=== PATIENT | male | born 1945 | race Caucasian/White ===

== ENCOUNTER 2020-12-24 22:16 | Emergency (ER) | payer MEDICARE, OTHER ==
[~2020-12-24] VITALS: Ht 167.6 cm; Wt 59.0 kg
--- NOTE | 2020-12-24 22:28 | NUR ---
karis after detention sent him for spo2 in the 's. pt O2 concentrator whilst in detention for a dui. pt on 2 L O2 at home as baseline. pt attached to all monitors. vss. nadn. 85% on room air.
--- NOTE | 2020-12-24 22:58 | NUR ---
pt with confusion thinking his car is outside and doesnt remember being in half-way. pt son Tracy's number found in wallet [phone] and pts daughter anushka [phone]. per pt okay to contact for information. per daughter pt recently d/c from 2,10E[facility]07. and has been admitted to [facility] multiple times for etoh abuse.
--- NOTE | 2020-12-24 23:09 | NUR ---
pt to ct.
[2020-12-24 23:13] LABS: BASOPHILS % (AUTO) 1 % (0-1); EOSINOPHILS % (AUTO) 1 % (1-7); LYMPHOCYTES % (AUTO) 28 % (22-44); MEAN CORPUSCULAR HEMOGLOBIN 30.9 pg (27.5-34.5); MEAN CORPUSCULAR HGB CONC 32.6 g/dL (33.2-36.2); MEAN PLATELET VOLUME 8.9 fL (7.4-10.4); MONOCYTES % (AUTO) 7 % (2-9); NEUTROPHILS % (AUTO) 64 % (42-75); PLATELET COUNT 264 x10^3/uL (130-400); RED BLOOD COUNT 3.73 x10^6/uL (4.38-5.82); RED CELL DISTRIBUTION WIDTH 15.9 % (9.4-14.8)
[2020-12-24 23:20] LABS: ALBUMIN 3.7 g/dL (3.4-5.0); ANION GAP 10 mmol/L (5-15); CALCIUM 8.4 mg/dL (8.5-10.1); CHLORIDE 110 mmol/L (98-107)
[2020-12-24 23:23] LABS: MD NO
[2020-12-24 23:25] LABS: ALANINE AMINOTRANSFERASE 57 U/L (12-78); ALKALINE PHOSPHATASE 89 U/L (45-117); BILIRUBIN,TOTAL 0.3 mg/dL (0.2-1.0); CREATININE 1.62 mg/dL (0.7-1.3); TOTAL PROTEIN 7.1 g/dL (6.4-8.2)
--- NOTE | 2020-12-25 00:15 | NUR ---
pt asleep with even and unlabored respirations
--- NOTE | 2020-12-25 00:45 | NUR ---
Report received from KD Rivera. This RN to assume care.
[2020-12-25 02:40] VITALS: BP 124/40
--- NOTE | 2020-12-25 02:41 | NUR ---
Patient sleeping. Respirations even and unlabored. Awaiting repeat trop result.
--- NOTE | 2020-12-25 03:31 | NUR ---
Road tested patient; patient ambulatory with a steady gait. Discharge instructions given. All questions and concerns addressed. Belongings with patient.
== END 2020-12-25 03:33 | disposition home or self-care (01) ==
LOC: ED 12-25 01:22
DX: F10.229 Alcohol dependence with intoxication, unspecified (principal); N18.9 Chronic kidney disease, unspecified; R41.82 Altered mental status, unspecified; R07.89 Other chest pain; R94.31 Abnormal electrocardiogram [ECG] [EKG]; Y90.0 Blood alcohol level of less than 20 mg/100 ml
CPT/HCPCS: 36415; 70450; 71045; 80053; 80320; 84484; 85025; 93005; 99285; G0480